=== PATIENT | female | born 1950 | race Hispanic/Latino ===

== ENCOUNTER 2025-01-16 03:26 | Emergency (ER) | payer OTHER ==
[~2025-01-16] VITALS: Ht 165.1 cm; Wt 88.0 kg
[2025-01-16 04:01] LABS: ADD UA MICROSCOPIC YES; APPEARANCE,URINE CLEAR (CLEAR); GLUCOSE, URINE (UA) >=1000 mg/dL (NEGATIVE); LEUKOCYTE ESTERASE ,URINE NEGATIVE Leu/uL (NEGATIVE); NITRATE,URINE NEGATIVE (NEGATIVE); OCCULT BLOOD,URINE SMALL (NEGATIVE)
[2025-01-16 04:02] LABS: SQUAMOUS EPITHELIAL CELL,UR RARE /HPF (0-2)
[2025-01-16 04:18] LABS: IMMATURE GRANULOCYTE ABSOLUTE 0.05 K/uL (0-1); NUCLEATED RED BLOOD CELLS 0.0 % (0.0-0.19); PLATELET COUNT (AUTO) 197 K/uL (130-400); RED BLOOD CELL COUNT(AUTO) 4.31 MIL/uL (4.00-5.50); RED CELL DISTRIBUTION WIDTH 13.5 % (11.0-15.5); WHITE BLOOD COUNT (AUTO) 14.0 K/uL (4.8-10.8)
[2025-01-16 04:25] LABS: CREATININE 1.1 mg/dL (0.5-1.0); GLOMERULAR FILTR. RATE CALC 53.0 mL/min (>90); GLUCOSE,RANDOM 292.0 mg/dL (70-105); SODIUM SERUM 141.0 mmol/L (136-145); UREA NITROGEN, BLOOD 35.0 mg/dL (7-18)
--- NOTE | 2025-01-16 05:45 | ERN ---
ED Note History of Present Illness Stated Complaint: RT FLANK PAIN Chief Complaint: Flank Pain Time Seen by MD: 03:31 Dictation: This is a 74-year-old female who presented to the emergency room with family member with complaints of severe right flank pain. Apparently the pain started a few hours ago and it radiates to the front towards the right lower quadrant area. She denied any hematuria pyuria fever chills and rigors. She denied any constipation and stated that she has bowel movements daily and her last BM was yesterday. No nausea vomitings diarrhea. She stated that she might have had a kidney stone in the past. Temperature 98.4 pulse 52 respirations 18 blood pressure 219/64 with a pulse oximetry of 98% on room air. She has a known history of hypertension, diabetes and hypercholesterolemia. Allergies: Coded Allergies: No Known Allergies (Unverified Allergy, Unknown, 01/16/25) Past Medical History Past Medical History: Diabetes-Type II, High Cholesterol, Hypertension Surgical History: Hysterectomy Family History: Negative Social History: Negative History: Not Applicable RN Note Reviewed/Agreed w/PFSH: Yes Review of System Dictation Constitutional: Negative for fever,chills, and weight loss Eyes: Negative for injury, pain,redness, and discharge ENT: Negative for injury,pain or swelling Cardiovascular: Negative for chest pain, palpitations, and edema Respiratory: Negative for shortness of breath, cough, and wheezing, Abdomen/GI: Negative for abdominal pain, nausea, vomiting, diarrhea, and constipation Back: Negative for injury and pain : Negative for injury, bleeding and discharge positive for right flank pain MS/Extremity: Negative for injury and deformity Skin: Negative for rash, and discoloration Neuro: Negative for headache, weakness, numbness, tingling, and seizure Psych: Negative for suicide ideation, homicidal ideation, and hallucinations Initial Vital Sign VS Vital Signs Date Time Temp Pulse Resp B/P (MAP) Pulse Ox O2 Delivery O2 Flow Rate FiO2 01/16/25 03:29 98.4 52 18 219/64 98 Room Air 01/16/25 04:28 0 21 Physical Exam Dictation General: awake, alert, NAD Head/Face: Normocephalic, atraumatic Eyes: PERRL, EOMI, vision at baseline ENT: oral cavity clear, TMs clear, no signs of infection Neck: Trachea midline, supple, no nuchal rigidity Cardiovascular: RRR, normal S1/S2, No MRGs, no JVD Respiratory: CTAB, no respiratory distress, No rales or wheezes Abdomen: Soft, non-tender, non-distended, normal bowel sounds, no guarding or rebound. No CVA angle tenderness Skin: Warm, dry, normal turgor, no rash MS/Extremity: Pulses equal, no cyanosis, neurovascular intact, FROM Neuro: COAx4, GCS 15, strength 5/5, CN 2-12 intact, normal cerebellar exam, normal gait, Psych: Normal behavior, mood, and affect normal Extremities-trace edema without any palpable cords, Homans sign is negative Results (Laboratory/Radiology) Laboratory/Radiology Laboratory Tests Test 01/16/25 03:37 01/16/25 04:11 Urine Color COLORLESS (YELLOW) Urine Appearance CLEAR (CLEAR) Urine pH 5.5 (5.0-8.0) Urine Specific [place] 1.024 (1.001-1.031) Urine Protein 70 mg/dL (NEGATIVE) H Urine Glucose (UA) >=1000 mg/dL (NEGATIVE) H Urine Ketones NEGATIVE mg/dL (NEGATIVE) Urine Occult Blood SMALL (NEGATIVE) H Urine Nitrate NEGATIVE (NEGATIVE) Urine Bilirubin NEGATIVE mg/dL (NEGATIVE) Urine Urobilinogen 0.2 mg/dL (0.2-1.0) Urine Leukocyte Esterase NEGATIVE Kenneth/uL Urine RBC 2-5 /HPF (0-1) H Urine WBC 2-5 /HPF (0-1) H Urine Squamous Epithelial Cells RARE /HPF (0-2) Urine Bacteria FEW /HPF (None Seen) White Blood Count 14.0 K/uL (4.8-10.8) H Red Blood Count 4.31 MIL/uL (4.00-5.50) Hemoglobin 13.3 g/dL (12.0-16.0) Hematocrit 39.8 % (36-48) Mean Corpuscular Volume 92.3 fL (79-99) Mean Corpuscular Hemoglobin 30.9 pg (27.0-33.0) Mean Corpuscular Hemoglobin Concent 33.4 g/dL (32.0-36.0) Red Cell Distribution Width 13.5 % (11.0-15.5) Platelet Count 197 K/uL (130-400) Mean Platelet Volume 11.3 fL (7.5-10.5) H Immature Granulocyte % (Auto) 0.4 % (0-1) Neutrophils (%) (Auto) 81.9 % (40.0-77.0) H Lymphocytes (%) (Auto) 10.4 % (21.0-51.0) L Monocytes (%) (Auto) 5.1 % (3.0-13.0) Eosinophils (%) (Auto) 1.9 % (0.0-8.0) Basophils (%) (Auto) 0.3 % (0.0-5.0) Neutrophils # (Auto) 11.5 K/uL (1.8-7.7) H Lymphocytes # (Auto) 1.5 K/uL (1.0-4.8) Monocytes # (Auto) 0.7 K/uL (0.1-1.0) Eosinophils # (Auto) 0.26 K/uL (0.00-0.70) Basophils # (Auto) 0.04 K/uL (0.00-0.20) Absolute Immature Granulocyte (auto 0.05 K/uL (0-1) Nucleated Red Blood Cells 0.0 % (0.0-0.19) Sodium Level 141 mmol/L (136-145) Potassium Level 3.7 mmol/L (3.5-5.1) Chloride Level 108 mmol/L (101-111) Carbon Dioxide Level 26 mmol/L (21-32) Blood Urea Nitrogen 35 mg/dL (7-18) H Creatinine 1.1 mg/dL (0.5-1.0) H Glomerular Filtration Rate Calc 53 mL/min (>90) Random Glucose 292 mg/dL (70-105) H Total Calcium 8.4 mg/dL (8.5-10.1) L Labs Reviewed?: Yes ED Course ED Course Orders Procedure Category Date Status Time Cbc With Differential LAB 01/16/25 Complete 03:32 Basic Metabolic Panel LAB 01/16/25 Complete 03:32 Urinalysis Profile LAB 01/16/25 Complete 03:32 Ketorolac PHA 01/16/25 Complete Tromethamine 30mg/Ml 04:30 Ondansetron 4mg Inj PHA 01/16/25 Complete (Zofran 4mg Inj) 04:30 Ct Abd/Pel Wo Con CT 01/16/25 Resulted Renal/Appy 06:17 0.9% Nacl 500ml PHA 01/16/25 Complete Iv.Soln (Ns 500ml 06:30 Hydralazine 20mg Inj PHA 01/16/25 Complete (Apresoline 20mg In 06:30 Ceftriaxone 1g Vial PHA 01/16/25 Complete (Rocephine 1g Inj) 08:00 Current Medications Medications (Trade) Dose Ordered Sig/Pierce Route PRN Reason Start Time Stop Time Status Last Admin Dose Admin Ceftriaxone Sodium (ROCEphine 1G INJ) 1 gm ONCE ONCE IVPB 01/16/25 08:00 01/16/25 08:01 DC Hydralazine HCl (APRESOLine 20MG INJ) 10 mg ONCE ONCE IV 01/16/25 06:30 01/16/25 06:31 DC 01/16/25 06:26 Ketorolac Tromethamine (toRADol) 30 mg ONCE ONCE IM 01/16/25 04:30 01/16/25 04:31 DC 01/16/25 04:20 Ondansetron HCl (zoFRAN 4MG INJ) 4 mg ONCE ONCE IVP 01/16/25 04:30 01/16/25 04:31 DC 01/16/25 04:20 Sodium Chloride 500 ml @ 0 mls/hr ONCE ONCE IV 01/16/25 06:30 01/16/25 06:31 DC 01/16/25 06:26 Vital Signs Date Time Temp Pulse Resp B/P (MAP) Pulse Ox O2 Delivery O2 Flow Rate FiO2 01/16/25 07:42 98.4 70 22 170/51 96 Room Air* 0 01/16/25 06:58 63 18 178/56 96 Room Air* 0 01/16/25 06:20 64 18 195/62 97 Room Air* 0 01/16/25 05:30 68 18 200/65 100 Room Air* 0 01/16/25 04:51 60 18 192/61 99 Room Air* 0 01/16/25 04:28 56 16 205/61 98 Room Air* 0 01/16/25 03:29 98.4 52 18 219/64 98 Room Air We will perform diagnostic labs, advanced imaging and administer medications according to the patient's complaint. Once the results are available, will review and personally interpreted the labs to rule out any acute life- threatening emergency the trach require immediate intervention and treatment. I will then re-evaluate the patient after treatment and diagnostic exams have return to determine whether the patient requires any further testing, can safely be discharged home or need further admission to hospital for additional treatment and evaluation. [place] [address]. BNP 7 revealed a BUN and creatinine of 35 and 1.1. Glucose is 292 Urinalysis showed small amount of occult blood but no leuko esterase or WBCs suggestive of a UTI. I updated the patient and her family member on available labs and see if the blood pressure would come down with the pain medication. We will also pursue a CT scan of the abdomen and pelvis to evaluate if it is truly renal colic or GI pathology. They both verbalized full understanding Medical Decision Making MDM DR OQUENDO took over care at 0700 pending imaging, re-evaluation, disposition CC: R flank & groin pain Historian: patient Comorbidities: DM, DLD, HTN Limitations by social determinates of health: none Ddx: renal stone, appendicitis, surgical pathology, AAA, UTI, pyelonephritis, hypertensive urgency, other VS: BP elevated 205/61, otherwise vitals are stable Labs (independently interpreted by me): leukocytosis 14k, no bands, L shift. No anemia. BMP increased BUN/Cr ratio consistent with dehydration, possible JOYA. Glucose 292. No DKA, other electrolytes stable. UA shows glucose, RBCs. CT abd pelvis w/o contrast (independently interpreted by me): R kidney w/ mild hydronephrosis, inflammation, 3mm uretral stone at [facility]. No free air or obvious surgical pathology. Treatment in ED: IV hydralazine, IM toradol, IV zofran, 500mL NS. Reassessment: BP improved, pain improved Patient has a small kidney stone at the ureteropelvic junction with the pain. She is hydronephrosis, borderline JOYA. High glucose. Dehydration. Also white count of 14 K. Based on comorbidities we will admit for observation and pain control. Patient was also found to be hypertensive urgency, treated in the ER. We will monitor the blood pressure I discussed this plan with the patient, she reports that she can not stay in the hospital. She is traveling to [place] today. Her pain is completely controlled in her blood pressure has a improved although it is mildly elevated. I discus sed the risks and benefits of staying hospital versus outpatient workup. She reports she understands. I will discharge her with cefpodoxime, as well as ibuprofen and Tylenol with codeine for pain control. Patient says she will drink plenty of liquids, and she will go to her primary doctor in [place] over the next couple of days when she arrives there. I told her to go to a local emergency department she has a any concerning symptoms. Problem List Problem List: (1) Right flank pain (2) Hypertensive urgency (3) Diabetes mellitus (4) Acute kidney injury DX & DISP Disposition: Discharge Departure Impression: Primary Impression: Right nephrolithiasis Additional Impressions: Acute kidney injury, Hypertensive urgency, Hyperglycemia due to diabetes mellitus Critical Time: 30 minutes (Critical Care Procedure NoteAuthorized and Performed by: meTotal critical care time: Approximately 36 minutesDue to a high probability of clinically significant, life threatening deterioration, the patient required my highest level of preparedness to intervene emergently and I personally spent this critical care time directly and personally managing the patient. This critical care time included obtaining a history; examining the p atient; pulse oximetry; ordering and review of studies; arranging urgent treatment with development of a management plan; evaluation of patient's response to treatment; frequent reassessment; and, discussions with other providers.This critical care time was performed to assess and manage the high probability of imminent, life-threatening deterioration that could result in multi-organ failure. It was exclusive of separately billable procedures and treating other patients and teaching time.Please see MDM section and the rest of the note for further information on patient assessment and treatment.) Condition: Stable Scripts Acetaminophen with Codeine (Acetaminophen-Cod #3 Tablet) 300 Mg-30 Mg Tablet 1 TAB PO Q6HPRN PRN for pain for 7 Days, #28 TAB 0 Refills Prov: PAULIE OQUENDO DO 01/16/25 Ibuprofen (Ibuprofen 800 mg Tab) 800 Mg Tab 800 MG PO Q6H PRN for PAIN, #30 TAB Prov: PAULIE OQUENDO DO 01/16/25 Cefpodoxime Proxetil (Cefpodoxime Proxetil) 200 Mg Tablet 200 MG PO BID for 7 Days, #14 TAB Prov: PAULIE OQUENDO DO 01/16/25 Additional Instructions: You have a kidney stone (2 mm) with mild hydronephrosis on the right side. This is causing your symptoms. As we discussed, many people will pass a stone of the size without procedures. Your blood pressure was elevated in the ER. You received treatment for this in the ER. Be sure to take all of your home blood pressure medications regularly. I have prescribed cefpodoxime, which is an antibiotic. Please take twice per day for the next seven days as prescribed. For pain, I recommend you alternate 800 mg of ibuprofen and Tylenol with codeine every 4 hours as needed. I have given you prescriptions for these medications. Use as needed. Be sure to drink plenty of liquids. As we discussed, I recommend that you follow up with your primary doctor within 48 hours for re-evaluation. You likely need your kidney function re-evaluated. Please immediately return to an emergency department if you have any concerning symptoms such as persistent vomiting, persistent pain, inability to urinate, or fevers. Referrals: SELF,REFERRAL (PCP) EFRA RODRIGUEZ MD Jan 16, 2025 05:45 PAULIE OQUENDO DO Jan 16, 2025 08:01
[2025-01-16] MEDS: 0.9% NACL 500ML IV.SOLN 500 ML IV ONE (06:26)
[2025-01-16 07:42] VITALS: BP 170/51; PULSE 70; RESP 22; TEMP 98.5; O2SAT 96
--- NOTE | 2025-01-16 07:53 | HMCIMG ---
EXAM: CT Abdomen and Pelvis Without IV contrast CLINICAL HISTORY: Right flank pain TECHNIQUE: Axial computed tomography images of the abdomen and pelvis without intravenous contrast. CONTRAST: No IV contrast. COMPARISON: None provided. FINDINGS: LUNG BASES: There is a calcified granuloma in the right lower lobe. LIVER: Unremarkable. GALLBLADDER AND BILE DUCTS: Cholecystectomy. No biliary ductal dilatation is evident. PANCREAS: Unremarkable. SPLEEN: Unremarkable. ADRENAL GLANDS: Unremarkable. KIDNEYS, URETERS, AND BLADDER: There is a 2 mm stone at the right ureterovesicular junction with moderate right hydroureteronephrosis and perinephric stranding. There are no left renal or ureteral stones. There is no left hydronephrosis. STOMACH AND BOWEL: No bowel obstruction or inflammation. Postsurgical changes from prior right hemicolectomy. APPENDIX: No evidence of acute appendicitis on CT examination. PERITONEUM: No free fluid. No free air. LYMPH NODES: No lymphadenopathy is evident. REPRODUCTIVE: Unremarkable as visualized. VASCULATURE: There are coronary artery calcifications. There are atherosclerotic calcifications in the aorta and its branches. 1.5 cm calcified splenic artery aneurysm. No abdominal aortic aneurysm. BONES: No aggressive appearing osseous lesion. No acute osseous pathology evident. IMPRESSION: 2 mm stone at the right ureterovesicular junction with moderate right hydroureteronephrosis and perinephric stranding. No left-sided stones. No left-sided hydronephrosis. No bowel obstruction or inflammation. Status post right hemicolectomy. Atherosclerosis and coronary artery disease. 1.5 cm calcified splenic artery aneurysm. No abdominal aortic aneurysm. /[facility]
[2025-01-16] MEDS ORDERED: ACET-2079 PO (08:08)
[2025-01-16] MEDS ORDERED: CEFP200T14 PO (08:08)
[2025-01-16] MEDS ORDERED: IBUP-2077 PO (08:08)
== END 2025-01-16 08:47 | disposition home or self-care (01) ==
LOC: EDH 03:26
DX: N13.2 Hydronephrosis with renal and ureteral calculous obstruction (principal); N17.9 Acute kidney failure, unspecified; I16.0 Hypertensive urgency; E11.65 Type 2 diabetes mellitus with hyperglycemia; E78.00 Pure hypercholesterolemia, unspecified; E86.0 Dehydration; I10 Essential (primary) hypertension; I25.10 Atherosclerotic heart disease of native coronary artery without angina pectoris; Z90.49 Acquired absence of other specified parts of digestive tract; Z90.710 Acquired absence of both cervix and uterus
CPT/HCPCS: 99291; 74176; 96374; 96375; 80048; 85025; 81001; 36415; 96372; J1885; J7040; J0360; J0696; J2405